=== PATIENT | male | born 2000 | race Caucasian/White ===

== ENCOUNTER 2018-07-09 11:46 | Observation (INO) | payer OTHER ==
[2018-07-09] MEDS ORDERED: ONDANSETRON 4 MG/2 ML VIAL IVP STA (12:09)
[2018-07-09] MEDS ORDERED: MORPHINE SULFATE 4 MG/ML SYRINGE IV STA ×2 (12:09→14:30)
[2018-07-09 12:44] LABS: Basophils % (A) 0 %; Eosinophils # (A) 0.1 k/uL (0-0.7); Eosinophils % (A) 1 %; HCT 45.3 % (39.0-53.0); HGB 15.9 gm/dL (13.0-17.5); Lymphocytes % (A) 13 %; MCH 32.9 pg (25.0-35.0); MCHC 35.1 g/dL (31.0-37.0); MCV 93.7 fL (80.0-100.0); Mean Platelet Volume 7.8; Monocytes # (A) 0.6 k/uL (0-1.0); Monocytes % (A) 7 %; Neutrophils # (A) 6.2 k/uL (1.3-7.7); Neutrophils % (A) 78 %; Platelet Count 292 k/uL (150-450); RBC 4.84 m/uL (4.30-5.90); RDW 12.3 % (11.5-15.5)
[2018-07-09 12:58] LABS: Amorphous Sediment,Urine Moderate /hpf; Appearance,Urine Turbid (Clear); Bilirubin,Urine Negative (Negative); Blood,Urine Negative (Negative); Color,Urine Yellow; Glucose,Urine (UA) Negative (Negative); Ketones,Urine Negative (Negative); Leukocyte Esterase,Urine Negative (Negative); Mucus,Urine Occasional /hpf; Nitrite,Urine Negative (Negative); PH, Urine 8.5 (5.0-8.0); Protein,Urine Trace (Negative); Specific Gravity,Urine 1.017 (1.001-1.035); Urobilinogen,Urine <2.0 mg/dL (<2.0)
[2018-07-09 13:02] LABS: ALT 35 U/L (21-72); AST 27 U/L (17-59); Albumin 5.4 g/dL (3.5-5.0); Alkaline Phosphatase 58 U/L (38-126); Amylase 60 U/L (30-110); Anion Gap 11 mmol/L; Blood Urea Nitrogen 12 mg/dL (9-20); Calcium 10.3 mg/dL (8.4-10.2); Carbon Dioxide 26 mmol/L (22-30); Chloride 104 mmol/L (98-107); Glucose 106 mg/dL (74-99); Lipase 83 U/L (23-300); Potassium 4.6 mmol/L (3.5-5.1); Sodium 141 mmol/L (137-145); Total Bilirubin 1.4 mg/dL (0.2-1.3); Total Protein 8.1 g/dL (6.3-8.2)
--- NOTE | 2018-07-09 13:17 | ED ---
General Adult HPI - General Chief complaint: Abdominal Pain Stated complaint: POSS KIDNEY STONE Time Seen by Provider: 07/09/18 12:05 Source: patient, RN notes reviewed Mode of arrival: ambulatory Limitations: no limitations - History of Present Illness Initial comments: Patient is a 18-year-old male presented to the emergency room today with a chief complaint of left-sided abdominal pain. Patient states that symptoms started earlier today. He does admit that it's similar to this pain and symptoms that he's had in the past with kidney stones. Patient does admit to episodes of nausea vomiting. He denies any other complaints or symptoms. Patient denies any recent fever, chills, shortness of breath, chest pain, back pain, numbness or tingling, dysuria or hematuria, constipation or diarrhea, headaches or visual changes, or any other complaints. - Related Data Home Medications Medication Instructions Recorded Confirmed No Known Home Medications 07/09/18 07/09/18 Allergies Allergy/AdvReac Type Severity Reaction Status Date / Time No Known Allergies Allergy Verified 07/09/18 12:42 Review of Systems ROS Statement: Those systems with pertinent positive or pertinent negative responses have been documented in the HPI. ROS Other: All systems not noted in ROS Statement are negative. Past Medical History Additional Past Medical History / Comment(s): Kidney stones History of Any Multi-Drug Resistant Organisms: None Reported Past Surgical History: No Surgical Hx Reported Past Psychological History: No Psychological Hx Reported Smoking Status: Current every day smoker Past Alcohol Use History: None Reported Past Drug Use History: Marijuana General Exam - General Exam Comments Initial Comments: General: The patient is awake and alert, in no distress, and does not appear acutely ill. Eye: There is normal conjunctiva bilaterally. No signs of icterus. Ears, nose, mouth and throat: There are moist mucous membranes and no oral lesions. Neck: The neck is supple, there is no tenderness or JVD. Cardiovascular: There is a regular rate and rhythm. No murmur, rub or gallop is appreciated. Respiratory: Lungs are clear to auscultation, respirations are non-labored, breath sounds are equal. No wheezes, stridor, rales, or rhonchi. Gastrointestinal: Admits soft on palpation. Patient does have mild tenderness left lower quadrant. Increased tenderness right lower quadrant on exam. No rebound, guarding or CVA tenderness. Musculoskeletal: Normal ROM, no tenderness. Neurological: A&O x 3. CN II-XII intact, There are no obvious motor or sensory deficits. Coordination appears grossly intact. Speech is normal. Skin: Skin is warm and dry and no rashes or lesions are noted. Psychiatric: Cooperative, appropriate mood & affect, normal judgment. Limitations: no limitations Course Vital Signs 07/09/18 11:54 Temperature 97.9 F Pulse Rate 65 Respiratory 20 Rate Blood Pressure 138/96 O2 Sat by Pulse 99 Oximetry Medical Decision Making - Medical Decision Making Patient reexamined at this time shows no signs of distress is resting comfortable. Patient remained to have pain in the right lower quadrant and a CT the abdomen and pelvis was performed showing evidence for an acute appendicitis. No evidence for any abscess or free air. No fever or elevated white count here in emergency room. Case was discussed with surgeon Dr. Luis recommends starting antibiotic and keeping patient nothing by mouth. - Lab Data Result diagrams: 07/09/18 12:28 07/09/18 12:28 Lab Results 07/09/18 07/09/18 07/09/18 Range/Units 12:28 12:28 12:28 WBC 8.0 (4.0-11.0) k/uL RBC 4.84 (4.30-5.90) m/uL Hgb 15.9 (13.0-17.5) gm/dL Hct 45.3 (39.0-53.0) % MCV 93.7 (80.0-100.0) fL MCH 32.9 (25.0-35.0) pg MCHC 35.1 (31.0-37.0) g/dL RDW 12.3 (11.5-15.5) % Plt Count 292 (150-450) k/uL Neutrophils % 78 % Lymphocytes % 13 % Monocytes % 7 % Eosinophils % 1 % Basophils % 0 % Neutrophils # 6.2 (1.3-7.7) k/uL Lymphocytes # 1.0 (1.0-4.8) k/uL Monocytes # 0.6 (0-1.0) k/uL Eosinophils # 0.1 (0-0.7) k/uL Basophils # 0.0 (0-0.2) k/uL Sodium 141 (137-145) mmol/L Potassium 4.6 (3.5-5.1) mmol/L Chloride 104 (98-107) mmol/L Carbon Dioxide 26 (22-30) mmol/L Anion Gap 11 mmol/L BUN 12 (9-20) mg/dL Creatinine 0.70 (0.66-1.25) mg/dL Est GFR (CKD-EPI)AfAm >90 (>60 ml/min/1.73 sqM) Est GFR (CKD-EPI)NonAf >90 (>60 ml/min/1.73 sqM) Glucose 106 H (74-99) mg/dL Calcium 10.3 H (8.4-10.2) mg/dL Total Bilirubin 1.4 H (0.2-1.3) mg/dL AST 27 (17-59) U/L ALT 35 (21-72) U/L Alkaline Phosphatase 58 (38-126) U/L Total Protein 8.1 (6.3-8.2) g/dL Albumin 5.4 H (3.5-5.0) g/dL Amylase 60 (30-110) U/L Lipase 83 (23-300) U/L Urine Color Yellow Urine Appearance Turbid (Clear) Urine pH 8.5 H (5.0-8.0) Ur Specific [place] 1.017 (1.001-1.035) Urine Protein Trace H (Negative) Urine Glucose (UA) Negative (Negative) Urine Ketones Negative (Negative) Urine Blood Negative (Negative) Urine Nitrite Negative (Negative) Urine Bilirubin Negative (Negative) Urine Urobilinogen <2.0 (<2.0) mg/dL Ur Leukocyte Esterase Negative (Negative) Urine WBC 5 (0-5) /hpf Amorphous Sediment Moderate H (None) /hpf Urine Mucus Occasional H (None) /hpf Disposition Clinical Impression: Acute appendicitis Disposition: ADMITTED IP TO THIS HOSP Condition: Good Is patient prescribed a controlled substance at d/c from ED?: No Referrals: Jose Angel Perez MD [Primary Care Provider] - 1-2 days Time of Disposition: 15:39
--- NOTE | 2018-07-09 13:35 | XR ---
EXAMINATION TYPE: XR KUB DATE OF EXAM: 07/09/2018 1:28 PM CLINICAL HISTORY: Flank pain with history of nephrolithiasis. TECHNIQUE: Single supine KUB image of the abdomen is obtained. COMPARISON: None. FINDINGS: Scattered gas is seen in nondilated small bowel loops. Gas and fecal material is seen in no ndilated colon. There is no abnormal calcification appreciated. The lung bases are clear and the osse ous structures are intact. IMPRESSION: No discrete calculi are seen overlying the renal shadows or along the courses of the uret ers nor within the urinary bladder. Overall nonobstructive bowel gas pattern.
--- NOTE | 2018-07-09 15:28 | CT ---
EXAMINATION TYPE: CT abdomen pelvis w con DATE OF EXAM: 07/09/2018 COMPARISON: None HISTORY: Right side abdominal pain CT DLP: 603.8 mGycm Automated exposure control for dose reduction was used. CONTRAST: CT scan of the abdomen pelvis is performed with IV Contrast, patient injected with 100 mL of Isovue 3 00. FINDINGS- LUNG BASES- No significant abnormality is appreciated. LIVER/GB- No gross abnormality is appreciated. PANCREAS- No gross abnormality is seen. SPLEEN- No gross abnormality is seen. ADRENALS- No gross abnormality is seen. KIDNEYS/BLADDER- no hydronephrosis nephrolithiasis or renal mass. BOWEL-there is a thickened tubular structure in the right lower quadrant with very mild periappendice al inflammation suggestive of acute appendicitis. Correlate clinically no adjacent abscess or free fl uid. Bowel gas pattern nonspecific.. LYMPH NODES-there is shotty adenopathy in the mesentery with a single pathologic node measuring 1.4 c m in short axis. OSSEOUS STRUCTURES-bilateral spondylolysis. Back space L5. OTHER- aorta of normal caliber. IMPRESSION- 1. Correlate for acute appendicitis. There also is adenopathy in the right lower quadrant which may b e related to reactive changes post appendicitis rather than mesenteric adenitis. Correlate clinically . Report called to the ER clinician.
[2018-07-09] MEDS ORDERED: PIPERACILLIN-TAZOBACTAM 3.375 GM in SODIUM CHLORIDE 0.9% 100 ML IVPB STA (15:48)
[2018-07-09] MEDS ORDERED: NALOXONE 0.4 MG/ML 1 ML VIAL IV PRN (15:49)
[2018-07-09] MEDS ORDERED: ONDANSETRON 4 MG/2 ML VIAL IVP PRN (15:49)
[2018-07-09] MEDS ORDERED: MORPHINE SULFATE 4 MG/ML SYRINGE IV PRN (15:49)
[2018-07-09 16:39] VITALS: RESP 16
[2018-07-09] MEDS ORDERED: LACTATED RINGERS 1,000 ML IV ONE (18:56)
[2018-07-09] MEDS ORDERED: DEXAMETHASONE SOD PHOSPHATE 10 MG/ML 1 ML VIAL IV ONE (19:04)
[2018-07-09] MEDS ORDERED: ONDANSETRON 4 MG/2 ML VIAL IVP ONE (19:06)
--- NOTE | 2018-07-09 19:10 | P.GSHP ---
History of Present Illness H&P Date: 07/09/18 18-year-old male presented to the emergency department with complaints of abdominal pain. He states that he came to ER secondary to his girlfriend telling him to. He does have a history of kidney stones and is concerned that he had a recurrent kidney stone. The patient states that most of his pain is in the right lower quadrant and has had some nausea but denied any emesis. On CT of the abdomen and pelvis, there was concern for thickening of the appendix and acute appendicitis. He denies any fevers, chills, chest pain or shortness of breath. He denies any bowel changes recently. - Review of Systems All systems: negative Past Medical History Additional Past Medical History / Comment(s): Kidney stones History of Any Multi-Drug Resistant Organisms: None Reported Past Surgical History: No Surgical Hx Reported Additional Past Surgical History / Comment(s): lower wisdom teeth extracted Past Anesthesia/Blood Transfusion Reactions: No Reported Reaction Smoking Status: Never smoker - Past Family History Father Family Medical History: No Reported History Mother Family Medical History: No Reported History Medications and Allergies Home Medications Medication Instructions Recorded Confirmed Type No Known Home Medications 07/09/18 07/09/18 History Allergies Allergy/AdvReac Type Severity Reaction Status Date / Time No Known Allergies Allergy Verified 07/09/18 12:42 Surgical - Exam Osteopathic Statement: *. No significant issues noted on an osteopathic structural exam other than those noted in the History and Physical/Consult. Vital Signs Temp Pulse Resp BP Pulse Ox 97.9 F 65 20 138/96 99 07/09/18 11:54 07/09/18 11:54 07/09/18 11:54 07/09/18 11:54 07/09/18 11:54 - General well nourished, no distress - Eyes PERRL - Neck trachea midline - Respiratory No difficulty with respiration - Abdomen Soft, tender in the right lower quadrant, nondistended, no rebound, no guarding - Psychiatric oriented to time, oriented to person, oriented to place Results - Labs 07/09/18 12:28 07/09/18 12:28 Abnormal Lab Results - Last 24 Hours (Table) 07/09/18 07/09/18 Range/Units 12:28 12:28 Glucose 106 H (74-99) mg/dL Calcium 10.3 H (8.4-10.2) mg/dL Total Bilirubin 1.4 H (0.2-1.3) mg/dL Albumin 5.4 H (3.5-5.0) g/dL Urine pH 8.5 H (5.0-8.0) Urine Protein Trace H (Negative) Amorphous Sediment Moderate H (None) /hpf Urine Mucus Occasional H (None) /hpf Diabetes panel 07/09/18 Range/Units 12:28 Sodium 141 (137-145) mmol/L Potassium 4.6 (3.5-5.1) mmol/L Chloride 104 (98-107) mmol/L Carbon Dioxide 26 (22-30) mmol/L BUN 12 (9-20) mg/dL Creatinine 0.70 (0.66-1.25) mg/dL Glucose 106 H (74-99) mg/dL Calcium 10.3 H (8.4-10.2) mg/dL AST 27 (17-59) U/L ALT 35 (21-72) U/L Alkaline Phosphatase 58 (38-126) U/L Total Protein 8.1 (6.3-8.2) g/dL Albumin 5.4 H (3.5-5.0) g/dL Calcium panel 07/09/18 Range/Units 12:28 Calcium 10.3 H (8.4-10.2) mg/dL Albumin 5.4 H (3.5-5.0) g/dL Pituitary panel 07/09/18 Range/Units 12:28 Sodium 141 (137-145) mmol/L Potassium 4.6 (3.5-5.1) mmol/L Chloride 104 (98-107) mmol/L Carbon Dioxide 26 (22-30) mmol/L BUN 12 (9-20) mg/dL Creatinine 0.70 (0.66-1.25) mg/dL Glucose 106 H (74-99) mg/dL Calcium 10.3 H (8.4-10.2) mg/dL Adrenal panel 07/09/18 Range/Units 12:28 Sodium 141 (137-145) mmol/L Potassium 4.6 (3.5-5.1) mmol/L Chloride 104 (98-107) mmol/L Carbon Dioxide 26 (22-30) mmol/L BUN 12 (9-20) mg/dL Creatinine 0.70 (0.66-1.25) mg/dL Glucose 106 H (74-99) mg/dL Calcium 10.3 H (8.4-10.2) mg/dL Total Bilirubin 1.4 H (0.2-1.3) mg/dL AST 27 (17-59) U/L ALT 35 (21-72) U/L Alkaline Phosphatase 58 (38-126) U/L Total Protein 8.1 (6.3-8.2) g/dL Albumin 5.4 H (3.5-5.0) g/dL - Imaging CT scan - abdomen: report reviewed, image reviewed (Thickening of the appendix is noted) Assessment and Plan (1) Acute appendicitis Narrative/Plan: 18-year-old male with acute appendicitis. We will plan for laparoscopic appendectomy. Begin IV antibiotics. Keep the patient nothing by mouth. Further recommendations after surgery. Current Visit: Yes Status: Acute Code(s): K35.80 - UNSPECIFIED ACUTE APPENDICITIS SNOMED Code(s): 55969665
[2018-07-09] MEDS ORDERED: GLYCOPYRROLATE 0.2 MG/ML 2 ML VIAL ONE (19:14)
[2018-07-09] MEDS ORDERED: HEPARIN SODIUM,PORCINE 5,000 UNIT/ML 1 ML VIAL ONE (19:14)
[2018-07-09] MEDS ORDERED: SUCCINYLCHOLINE CHLORIDE 100 MG/5 ML SYR IV ONE (19:14)
[2018-07-09] MEDS ORDERED: HYDROmorphone (PF) 1 MG/ML ONE (19:14)
[2018-07-09] MEDS ORDERED: PROPOFOL 10 MG/ML 20 ML VIAL IV ONE (19:14)
[2018-07-09] MEDS ORDERED: KETOROLAC 30 MG/ML 1 ML VIAL ONE (19:14)
[2018-07-09] MEDS ORDERED: ROCURONIUM BROMIDE 10 MG/ML 10 ML VIAL IV ONE (19:14)
[2018-07-09] MEDS ORDERED: MIDAZOLAM 2 MG/2 ML VIAL ONE (19:14)
[2018-07-09] MEDS ORDERED: NEOSTIGMINE 1 MG/ML 10 ML VIAL ONE (19:14)
[2018-07-09] MEDS ORDERED: fentaNYL (PF) 50 MCG/ML 2 ML AMP ONE (19:14)
[2018-07-09] MEDS ORDERED: LIDOCAINE 1% INJ 10MG/ML (20 ML MDV) ONE (19:14)
[2018-07-09] MEDS ORDERED: ceFAZolin 1,000 MG VIAL ONE (19:14)
[2018-07-09] MEDS ORDERED: BUPIVACAIN-EPI 0.25%-1:200,000 30 ML VIAL SQ ONE ×3 (19:23→19:49)
[2018-07-09] MEDS ORDERED: HYDROcodone/APAP 5-325MG 1 EACH TAB PO PRN (20:26)
--- NOTE | 2018-07-09 20:26 | P.OP ---
Date of Procedure: 07/09/18 Preoperative Diagnosis: Acute appendicitis Postoperative Diagnosis: Acute appendicitis Procedure(s) Performed: Laparoscopic appendectomy Anesthesia: ELO Surgeon: Amadou Luis Pathology: other (Appendix) Condition: stable Disposition: floor Indications for Procedure: 18-year-old male presented to the emergency department with complaints of abdominal pain. On workup he was found to have acute appendicitis. Plan for laparoscopic appendectomy was made. The patient was explained the risks, benefits and alternatives to the procedure prior to providing consent and did provide consent prior to attending the operating suite. Operative Findings: Inflamed gallbladder adhered to abdominal wall Description of Procedure: The patient was brought into the operating suite and placed in supine position on the operating table. Sedation was provided by anesthesia and the patient underwent endotracheal intubation. The patient was then prepped and draped in regular sterile fashion. A supraumbilical incision was made dissection was carried to the fascia the fascia was incised. A 12 mm trocar was placed and pneumoperitoneum was achieved. 2 additional 5 mm ports were placed. One was placed in the suprapubic region and one was placed in the left lower quadrant. The small bowel was then swept towards the midline and the appendix was clearly visualized. It was noted to be inflamed and adhered to the abdominal wall. Meticulous dissection was used to dissect the appendix from the abdominal wall. A window was created between the appendix and the mesoappendix. A stapling device was then used at the base of the appendix to ligate the appendix. LigaSure device was used to dissect the mesoappendix. Hemostasis was maintained. The appendix was then removed from the abdomen and Endo Catch bag. Hemostasis was noted to be maintained. All ports removed from the abdomen. The fascia of the super umbilical incision site was closed with a figure-of- eight 0 Vicryl suture. All skin incisions were closed with 4-0 Vicryl subcuticular suture. The patient was then awakened and taken to postanesthesia care unit in stable condition.
[2018-07-09] MEDS: SODIUM CHLORIDE 0.9% 1,000 ML IV SCH ×2 (20:50→20:51)
[2018-07-09] MEDS: HEPARIN SODIUM,PORCINE 5,000 UNIT/ML 1 ML VIAL SQ SCH (21:39)
[2018-07-09] MEDS: PIPERACILLIN-TAZOBACTAM 3.375 GM in SODIUM CHLORIDE 0.9% 100 ML IVPB SCH (23:49)
[2018-07-10 08:11] LABS: Basophils % (A) 0 %; Eosinophils % (A) 0 %; HCT 42.8 % (39.0-53.0); HGB 14.1 gm/dL (13.0-17.5); Lymphocytes # (A) 0.8 k/uL (1.0-4.8); Lymphocytes % (A) 6 %; MCH 31.2 pg (25.0-35.0); MCV 94.4 fL (80.0-100.0); Mean Platelet Volume 8.2; Monocytes # (A) 0.7 k/uL (0-1.0); Monocytes % (A) 5 %; Neutrophils % (A) 88 %; Platelet Count 274 k/uL (150-450); RBC 4.53 m/uL (4.30-5.90); RDW 12.2 % (11.5-15.5); WBC 13.7 k/uL (4.0-11.0)
[2018-07-10 08:19] LABS: ALT 28 U/L (21-72); AST 24 U/L (17-59); Albumin 4.4 g/dL (3.5-5.0); Alkaline Phosphatase 50 U/L (38-126); Anion Gap 8 mmol/L; Blood Urea Nitrogen 10 mg/dL (9-20); Calcium 9.4 mg/dL (8.4-10.2); Carbon Dioxide 27 mmol/L (22-30); Chloride 102 mmol/L (98-107); Glucose 103 mg/dL (74-99); Potassium 4.5 mmol/L (3.5-5.1); Sodium 137 mmol/L (137-145); Total Bilirubin 1.6 mg/dL (0.2-1.3); Total Protein 6.8 g/dL (6.3-8.2)
[2018-07-10 09:08] VITALS: BP 125/63; PULSE 56; TEMP 98.4
[2018-07-10] MEDS: PIPERACILLIN-TAZOBACTAM 3.375 GM in SODIUM CHLORIDE 0.9% 100 ML IVPB SCH (09:08)
[2018-07-10] MEDS: HEPARIN SODIUM,PORCINE 5,000 UNIT/ML 1 ML VIAL SQ SCH (09:10)
--- NOTE | 2018-07-10 10:32 | P.DS ---
Providers Date of admission: 07/09/18 16:14 Attending physician: Amadou Luis DO Primary care physician: Jose Angel Perez - Discharge Diagnosis(es) (1) Acute appendicitis Current Visit: Yes Status: Acute Hospital Course: 18-year-old male presented to the hospital with complaints of abdominal pain. On workup, acute appendicitis was diagnosed. Secondary to this, the patient did have a laparoscopic appendectomy. On postop day #1, the patient states he was feeling better and diet was advanced. Patient was tolerating his diet and pain was well-controlled. He was surgically stable for discharge at this time. Procedures: Laparoscopic appendectomy Patient Condition at Discharge: Good Plan - Discharge Summary Discharge Rx Participant: No New Discharge Prescriptions: New HYDROcodone/APAP 5-325MG [[place] 5-325] 1 tab PO Q6HR PRN 3 Days #12 tab PRN Reason: Pain Discharge Medication List HYDROcodone/APAP 5-325MG [[place] 5-325] 1 tab PO Q6HR PRN 3 Days #12 tab [Rx] Follow up Appointment(s)/Referral(s): Jose Angel Perez MD [Primary Care Provider] - 1-2 days Amadou Luis DO [Doctor of Osteopathic Medicine] - 1 Week Activity/Diet/Wound Care/Special Instructions: Continue to increase activity daily No lifting greater than 5 pounds until seen by surgeon in 10 days Do not return to work for at minimum 2 weeks, this may be adjusted based on clinical progress Okay to shower, do not scrub soap on incision sites, pat dry Discharge Disposition: HOME SELF-CARE
== END 2018-07-10 13:21 | disposition home or self-care (01) ==
LOC: EC 11:46 → 4SSUR 16:14
PROVIDERS: ADMIT Surgery; ATTEND Surgery
DX: K35.80 Unspecified acute appendicitis (principal); K36 Other appendicitis; K81.9 Cholecystitis, unspecified; F17.200 Nicotine dependence, unspecified, uncomplicated; Z87.442 Personal history of urinary calculi
CPT/HCPCS: 44970; 96376 ×2; 96375 ×2; 96374; 99285; 36415; 88304; 80053 ×2; 82150; 83690; 85025 ×2; 81001; 87040; 74018; 74177; G0378 ×2; J2543 ×2; J2250; J2270; J1644; J1100; J2710; J2405; J0690; J2001; J3010; J1885; J1170; J0330; J2704; Q9967

== ENCOUNTER 2019-07-18 00:22 | Emergency (ER) | payer OTHER ==
[2019-07-18 00:37] VITALS: RESP 18
[2019-07-18] MEDS ORDERED: KETOROLAC 30 MG/ML 1 ML VIAL IVP STA (00:57)
[2019-07-18] MEDS ORDERED: ONDANSETRON 4 MG/2 ML VIAL IVP STA (00:57)
[2019-07-18] MEDS ORDERED: SODIUM CHLORIDE 0.9% 500 ML 500 ML IV STA (00:57)
[2019-07-18] MEDS ORDERED: SODIUM CHLORIDE 0.9% 1,000 ML IV STA (00:57)
[2019-07-18] MEDS ORDERED: HYDROmorphone 0.5 MG/0.5 ML SYRINGE IVP STA ×2 (00:57→02:36)
[2019-07-18 01:15] LABS: Basophils # (A) 0.1 k/uL (0-0.2); Basophils % (A) 1 %; Eosinophils # (A) 0.1 k/uL (0-0.7); Eosinophils % (A) 1 %; HCT 44.1 % (39.0-53.0); HGB 15.1 gm/dL (13.0-17.5); Lymphocytes % (A) 9 %; MCH 32.3 pg (25.0-35.0); MCHC 34.2 g/dL (31.0-37.0); MCV 94.5 fL (80.0-100.0); Monocytes # (A) 0.5 k/uL (0-1.0); Monocytes % (A) 5 %; Neutrophils # (A) 9.1 k/uL (1.3-7.7); Neutrophils % (A) 83 %; Platelet Count 384 k/uL (150-450); RBC 4.67 m/uL (4.30-5.90)
[2019-07-18 01:20] LABS: Appearance,Urine Clear (Clear); Bilirubin,Urine Negative (Negative); Blood,Urine Negative (Negative); Calcium Oxalate Crystals,Urine Many /hpf; Color,Urine Yellow; Glucose,Urine (UA) Negative (Negative); Ketones,Urine 1+ (Negative); Leukocyte Esterase,Urine Negative (Negative); Mucus,Urine Many /hpf; Nitrite,Urine Negative (Negative); PH, Urine 6.5 (5.0-8.0); Protein,Urine 1+ (Negative); RBC,Urine 3 /hpf (0-5); Specific Gravity,Urine 1.029 (1.001-1.035); Squamous Epithelial Cell,Urine 1 /hpf (0-4); WBC,Urine 2 /hpf (0-5)
[2019-07-18 01:24] LABS: ALT 16 U/L (4-49); AST 24 U/L (17-59); African American GFR (CKD) >90 (>60 ml/min/1.73 sqM); Albumin 5.3 g/dL (3.5-5.0); Alkaline Phosphatase 92 U/L (38-126); Amylase 65 U/L (30-110); Anion Gap 12 mmol/L; Blood Urea Nitrogen 10 mg/dL (9-20); Calcium 10.6 mg/dL (8.4-10.2); Carbon Dioxide 27 mmol/L (22-30); Chloride 101 mmol/L (98-107); Glucose 110 mg/dL (74-99); Non-African American GFR(CKD) >90 (>60 ml/min/1.73 sqM); Potassium 4.1 mmol/L (3.5-5.1); Sodium 140 mmol/L (137-145); Total Protein 8.5 g/dL (6.3-8.2)
--- NOTE | 2019-07-18 01:45 | ED ---
Abdominal Pain HPI - General Chief Complaint: Abdominal Pain Stated Complaint: Kidney Stone Time Seen by Provider: 07/18/19 00:38 Source: patient, family Mode of arrival: wheelchair Limitations: no limitations - History of Present Illness Initial Comments: 19-year-old male patient presents to the emergency department today for evaluation of lower abdominal pain. Patient states the pain started a couple of hours ago. States it is sharp and stabbing. States it is mostly in the left lower quadrant and occasionally does radiate through to the back. States he has been nauseated but denies any vomiting. Denies any fever or chills. States he is having difficulty urinating. She does have history of kidney stones, states this does feel similar. He has had appendectomy in the past. Patient denies any recent rash, shortness breath, chest pain, diarrhea, constipation, back pain, numbness, tingling, dizziness, weakness, headache, visual changes, or any other complaints. - Related Data Previous Rx's Medication Instructions Recorded HYDROcodone/APAP 5-325MG [[place] 1 tab PO Q6HR PRN 3 Days #12 tab 07/10/18 5-325] Ibuprofen [Motrin] 600 mg PO Q8HR PRN #30 tab 07/18/19 Ondansetron [Zofran ODT] 4 mg PO Q8HR PRN #10 tab 07/18/19 Tamsulosin HCl [Flomax] 0.4 mg PO DAILY #7 cap 07/18/19 predniSONE 50 mg PO DAILY #3 tab 07/18/19 Allergies Allergy/AdvReac Type Severity Reaction Status Date / Time No Known Allergies Allergy Verified 07/18/19 00:37 Review of Systems ROS Statement: Those systems with pertinent positive or pertinent negative responses have been documented in the HPI. ROS Other: All systems not noted in ROS Statement are negative. Past Medical History Additional Past Medical History / Comment(s): Kidney stones History of Any Multi-Drug Resistant Organisms: None Reported Past Surgical History: Appendectomy Additional Past Surgical History / Comment(s): lower wisdom teeth extracted Past Anesthesia/Blood Transfusion Reactions: No Reported Reaction Past Psychological History: No Psychological Hx Reported Smoking Status: Never smoker Past Alcohol Use History: None Reported Past Drug Use History: Marijuana - Past Family History Father Family Medical History: No Reported History Mother Family Medical History: No Reported History General Exam Limitations: no limitations General appearance: alert, in no apparent distress, other (Physical well- developed, well-nourished adult male patient in mild distress related to pain. Vital signs upon presentation are temperature 98.2F, pulse 80, respirations 18, blood pressure 134/98, pulse ox 99% on room air.) Eye exam: Present: normal appearance, PERRL, EOMI. Absent: scleral icterus, conjunctival injection, periorbital swelling ENT exam: Present: normal exam, normal oropharynx, mucous membranes moist Respiratory exam: Present: normal lung sounds bilaterally. Absent: respiratory distress, wheezes, rales, rhonchi, stridor Cardiovascular Exam: Present: regular rate, normal rhythm, normal heart sounds. Absent: systolic murmur, diastolic murmur, rubs, gallop, clicks GI/Abdominal exam: Present: soft, tenderness (Generalized tenderness, worse over the left lower quadrant), guarding, normal bowel sounds. Absent: distended, rebound, rigid Neurological exam: Present: alert, oriented X3, CN II-XII intact Psychiatric exam: Present: normal affect, normal mood Skin exam: Present: warm, dry, intact, normal color. Absent: rash Course Vital Signs 07/18/19 00:34 Temperature 98.2 F Pulse Rate 80 Respiratory 18 Rate Blood Pressure 134/98 O2 Sat by Pulse 99 Oximetry Medical Decision Making - Medical Decision Making 19-year-old male patient presents to the emergency department today for evaluation of lower abdominal pain worse on the left side. Physical examination did reveal lower abdominal tenderness. Labs reviewed and are relatively unremarkable. CT abdomen and pelvis was obtained and did show evidence for left-sided hydronephrosis and a 1 mm kidney stone. We will treat his pain. Discharge follow up with urology and his primary care physician. Return parameters discussed in detail. He verbalizes understanding and agrees with this plan. - Lab Data Result diagrams: 07/18/19 01:08 07/18/19 01:08 Lab Results 07/18/19 07/18/19 07/18/19 Range/Units 01:08 01:08 01:08 WBC 11.0 H (3.8-10.6) k/uL RBC 4.67 (4.30-5.90) m/uL Hgb 15.1 (13.0-17.5) gm/dL Hct 44.1 (39.0-53.0) % MCV 94.5 (80.0-100.0) fL MCH 32.3 (25.0-35.0) pg MCHC 34.2 (31.0-37.0) g/dL RDW 12.0 (11.5-15.5) % Plt Count 384 (150-450) k/uL Neutrophils % 83 % Lymphocytes % 9 % Monocytes % 5 % Eosinophils % 1 % Basophils % 1 % Neutrophils # 9.1 H (1.3-7.7) k/uL Lymphocytes # 1.0 (1.0-4.8) k/uL Monocytes # 0.5 (0-1.0) k/uL Eosinophils # 0.1 (0-0.7) k/uL Basophils # 0.1 (0-0.2) k/uL Sodium 140 (137-145) mmol/L Potassium 4.1 (3.5-5.1) mmol/L Chloride 101 (98-107) mmol/L Carbon Dioxide 27 (22-30) mmol/L Anion Gap 12 mmol/L BUN 10 (9-20) mg/dL Creatinine 0.97 (0.66-1.25) mg/dL Est GFR (CKD-EPI)AfAm >90 (>60 ml/min/1.73 sqM) Est GFR (CKD-EPI)NonAf >90 (>60 ml/min/1.73 sqM) Glucose 110 H (74-99) mg/dL Calcium 10.6 H (8.4-10.2) mg/dL Total Bilirubin 1.0 (0.2-1.3) mg/dL AST 24 (17-59) U/L ALT 16 (4-49) U/L Alkaline Phosphatase 92 (38-126) U/L Total Protein 8.5 H (6.3-8.2) g/dL Albumin 5.3 H (3.5-5.0) g/dL Amylase 65 (30-110) U/L Lipase 246 (23-300) U/L Urine Color Yellow Urine Appearance Clear (Clear) Urine pH 6.5 (5.0-8.0) Ur Specific [place] 1.029 (1.001-1.035) Urine Protein 1+ H (Negative) Urine Glucose (UA) Negative (Negative) Urine Ketones 1+ H (Negative) Urine Blood Negative (Negative) Urine Nitrite Negative (Negative) Urine Bilirubin Negative (Negative) Urine Urobilinogen 3.0 (<2.0) mg/dL Ur Leukocyte Esterase Negative (Negative) Urine RBC 3 (0-5) /hpf Urine WBC 2 (0-5) /hpf Ur Squamous Epith Cells 1 (0-4) /hpf Calcium Oxalate Crystal Many H (None) /hpf Urine Mucus Many H (None) /hpf - Radiology Data Radiology results: report reviewed, image reviewed Disposition Clinical Impression: Left renal stone, Allergic reaction Disposition: HOME SELF-CARE Condition: Good Instructions (If sedation given, give patient instructions): Kidney Stones (ED), General Allergic Reaction (ED) Additional Instructions: It seems you had an ALLERGIC reaction. Inform others that you had ALLERGY to contrast dye. Take Benadryl every 6 hours as needed. Take medications as directed. Follow-up through primary care physician for recheck in 1-2 days. Follow-up with urology as soon as possible for further evaluation. Return to the emergency department immediately for any new, worsening, or concerning symptoms. Prescriptions: Tamsulosin HCl [Flomax] 0.4 mg PO DAILY #7 cap Ibuprofen [Motrin] 600 mg PO Q8HR PRN #30 tab PRN Reason: Pain predniSONE 50 mg PO DAILY #3 tab Ondansetron [Zofran ODT] 4 mg PO Q8HR PRN #10 tab PRN Reason: Nausea Is patient prescribed a controlled substance at d/c from ED?: No Referrals: Jose Angel Perez MD [Primary Care Provider] - 1-2 days
[2019-07-18] MEDS ORDERED: methylPREDNISolone SOD SUCCI 125 MG/2 ML VIAL IV STA (01:51)
[2019-07-18] MEDS ORDERED: diphenhydrAMINE 50 MG/ML 1 ML VIAL IVP STA (01:51)
[2019-07-18] MEDS ORDERED: FAMOTIDINE 20 MG/2 ML VIAL IV STA (01:51)
--- NOTE | 2019-07-18 01:56 | CT ---
EXAMINATION TYPE: CT abdomen pelvis w con DATE OF EXAM: 07/18/2019 COMPARISON: 07/09/2018 HISTORY: Left Abdominal pain CT DLP: 579.5 mGycm Automated exposure control for dose reduction was used. CONTRAST: Performed with IV Contrast, patient injected with 100 mL of Isovue 300. Multiple axial sections were obtained from the diaphragm to the floor the pelvis with intravenous con trast. Lung bases are clear. There is no pleural effusion. Heart appears normal. Liver spleen stomach pancreas gallbladder appear normal. Bile ducts are not dilated. There is no adrenal mass. Kidneys show contrast opacification. There is a delayed left side pyelogra m. There is mild left-sided hydronephrosis. There is mild left-sided hydroureter. Distal left ureter is not dilated. There is a possible 1 mm calculus in the distal left ureter on axial image 75. The bl adder distends smoothly. There is no inguinal hernia. There is no free fluid in the pelvis. There is no mesenteric edema. There is no ascites or free air. There is apparent surgical clips posterior to the cecum related to appendectomy. There is no sign of a bowel obstruction. There is no free air. Lumbar vertebra show a L5-S1 first-degree spondylolisthesis. There is L5 spondylolysis. Disc spaces a re fairly normal. Bony pelvis is intact. IMPRESSION: Left-sided hydronephrosis and mild hydroureter consistent with obstruction. There is possible tiny ca lculus distal left ureter. Abnormality appears new compared to old exam. L5 spondylolysis with first-degree spondylolisthesis unchanged.
[2019-07-18] MEDS ORDERED: ACET/COD 300 MG/30 MG STARTER PACK 6 TAB BTL PO STA (02:28)
[2019-07-18] MEDS ORDERED: ONDANSETRON 4 MG ODT STARTER PACK 2 TAB BTL PO STA (02:28)
[2019-07-18] MEDS ORDERED: TAMSULOSIN 0.4 MG CAP.ER.24H PO STA (02:29)
[2019-07-18] MEDS ORDERED: IBUPROFEN 600 MG STARTER PACK 4 TAB BTL PO STA (02:29)
[2019-07-18] MEDS ORDERED: HYDROcodone/APAP 5-325MG 1 EACH TAB PO STA (02:50)
[2019-07-18 03:07] VITALS: BP 125/79; PULSE 75; TEMP 98
== END 2019-07-18 03:11 | disposition home or self-care (01) ==
LOC: EC 00:22
DX: N13.2 Hydronephrosis with renal and ureteral calculous obstruction (principal); T78.40XA Allergy, unspecified, initial encounter
CPT/HCPCS: 36415; 80053; 82150; 83690; 85025; 81001; 74177; 99284; 96374; 96375 ×5; 96361 ×2; J1200; J2930; J2405; J1885; S0119; J1170